=== PATIENT | male | born 1945 | race Caucasian/White ===

== ENCOUNTER 2018-11-15 05:27 | Day surgery (SDC) | payer OTHER ==
[~2018-11-15] VITALS: Ht 182.9 cm; Wt 110.7 kg
[~2018-11-15 05:27] MED LIST: ASPIR 8181 MG PO; COLACE100 MG PO; COMBIGAN EYE DR10 ML OPHTHALMIC; CRESTOR40 MG PO; DILT-XR180 MG PO; DULCOLAX5 MG PO; METOPROLOL SUCC50 MG PO; OMEPRAZOLE 20 M20 M1 PO; SEVERE ALLERGY1 EACH PO; VITAMIN D-32000 UNIT PO; XALATAN2.5 ML OPHTHALMIC
[2018-11-15 12:12] VITALS: BP 111/60
--- NOTE | 2018-11-19 06:18 | O ---
[facility] [place] [address] OPERATIVE REPORT Name: BARBYDAV LEEANNA Room #: DEP [facility].#: [id number] Admission: 11/15/18 ������������������ Attend Phys: Michael King MD Discharge: 11/15/18 ������������������ Date of : 41 Report #: [id number] THIS REPORT FOR: //name// CC: SHAN Clark OD Michael King DATE OF SERVICE: 11/15/2018 ASSOCIATE MUSIC PROFESSOR: None. PREOPERATIVE DIAGNOSIS: Bilateral upper lid ptosis with superior visual field defects both eyes. POSTOPERATIVE DIAGNOSIS: Bilateral upper lid ptosis with superior visual field defects both eyes. OPERATION PERFORMED: Bilateral upper lid functional ptosis repair. ASSOCIATE MUSIC PROFESSOR: None. ANESTHESIA: Local with IV sedation. COMPLICATIONS: None. INDICATIONS FOR PROCEDURE: This patient has bilateral upper lid ptosis with superior visual field loss both eyes. Visual field testing demonstrates dense superior visual defects. Retesting with the upper lid elevated shows an improvement in visual field loss of over 30% and in excess of 12 degrees. The current procedure is being undertaken in order to improve the patient's visual function. Informed consent was obtained to include but not limited to the risk of loss of vision, bleeding, infection, scarring, failure to improve the problem and need for further surgery, such as adjustment of lid height. DESCRIPTION OF PROCEDURE: The patient was taken to the operating room, where 2% Xylocaine with epinephrine mixed with equal parts of 0.75% Marcaine with Wydase was administered transcutaneously to each upper lid. The patient was then prepped and draped in the usual sterile fashion. An upper lid crease incision was then made bilaterally and the dissection was carried down until the orbital septum was identified. The orbital septum was then cleared and the preaponeurotic fat identified. The levator aponeurosis was then disinserted from the anterior surface of the tarsal plate and dissected [address] [address] OPERATIVE REPORT Name: DAV DIOR Room #: DEP [facility].#: [id number] Admission: 11/15/18 ������������������ Attend Phys: Michael King MD Discharge: 11/15/18 ������������������ Date of : 41 Report #: [id number] free in the avascular Jasso's muscle plane. The aponeurosis was then advanced and reattached to the anterior surface of the tarsal plate with interrupted mattress 6-0 Novafil sutures on each side, adjusting for height and contour. The redundant aponeurosis was then amputated. The incision was then closed with multiple interrupted 6-0 chromic sutures that were used to recreate an upper lid crease. The skin was closed with a running 6-0 plain gut suture. The wound was then cleaned and dressed with ophthalmic antibiotic ointment followed by a Telfa pad. The patient was transported to the recovery area, having tolerated the procedure well with no anesthesia or operative complications being noted. ��������������������������������������������� <ELECTRONICALLY SIGNED> ���������������������������������������� By: Michael King MD ��������������������������������������������� 11/19/18 0618 1320 1330 Michael King MD /nt
== END 2018-11-15 14:10 | disposition home or self-care (01) ==
LOC: TBA 05:27 → OR 05:27 → TBA 05:28 → OR 13:13
DX: H02.403 Unspecified ptosis of bilateral eyelids (principal); H53.462 Homonymous bilateral field defects, left side; H53.461 Homonymous bilateral field defects, right side; Z68.32 Body mass index [BMI] 32.0-32.9, adult; Z87.891 Personal history of nicotine dependence; G47.30 Sleep apnea, unspecified; I10 Essential (primary) hypertension; E78.5 Hyperlipidemia, unspecified; Z95.5 Presence of coronary angioplasty implant and graft; I21.3 ST elevation (STEMI) myocardial infarction of unspecified site; I20.9 Angina pectoris, unspecified
CPT/HCPCS: 50010; 50101; 50386; 50398; 51636; 56528; 56531; 62110; 62850; 70005